=== PATIENT | female | born 1990 | race Caucasian/White ===

== ENCOUNTER 2024-09-15 09:20 | Inpatient (IN) ==
[2024-09-15 11:01] LABS: ABS Lymphocytes 1.6 10^3/uL (1.0-4.8); ABS Monocytes 0.6 10^3/uL (0.0-0.9); ABS Neutrophils 9.9 10^3/uL (1.5-7.6); Eosinophil % 0.2 %; Hematocrit 34.2 % (35-45); Hemoglobin 11.4 g/dL (11.5-14.3); Lymphocyte % 12.9 %; Mean Corpuscular Hemoglobin 27.7 pg (27-33); Mean Corpuscular Hgb Conc 33.5 g/dL (31-36); Mean Corpuscular Volume 82.6 fL (80-97); Mean Platelet Volume 8.4 fL (7.5-11.2); Platelet Count 242 10^3/uL (150-450); Red Blood Count 4.13 10^6/uL (3.63-4.92); Red Cell Distribution Width 14.2 % (12-17); White Blood Count 12.2 10^3/uL (3.8-11.8)
[2024-09-15 11:24] LABS: Albumin 3.6 g/dL (3.2-5.2); Albumin/Globulin Ratio 1.2 (1-3); Calcium 9.4 mg/dL (8.6-10.3); Creatinine, Serum 0.57 mg/dL (0.51-0.95); Globulin 2.9 g/dL (2-4); Potassium 4.1 mmol/L (3.5-5.0); Total Bilirubin 0.3 mg/dL (0.2-1.0); Total Protein 6.5 g/dL (6.4-8.9)
[2024-09-15 11:52] LABS: Urine Benzodiazepine Screen None Detected (None Detect); Urine Cannabinoids Screen None Detected (None Detect); Urine Opiates Screen None Detected (None Detect)
[2024-09-15 11:58] LABS: Urine Creatinine Concentration 19.28 mg/dL (20.00-320.00); Urine TP Concentration < 5 mg/dL; Urine TP Creat Ratio 0.25 mg/mg
[2024-09-15] MEDS: miSOPROStol 100 mcg TAB VAGINAL ONE (16:34)
[2024-09-15] MEDS ORDERED: Nalbuphine 10 MG/ML 1 ML VIAL IV PRN (18:43)
[2024-09-15] MEDS ORDERED: Calcium Carb (TUMS) 500 mg CHEW TAB PO PRN (19:30)
[2024-09-15] MEDS ORDERED: Ondansetron 4 mg VIAL 2 MG/ML 2 ml VIAL IV PRN (19:30)
[2024-09-15] MEDS: Dinoprostone 10 MG VAG.SUPP VAGINAL ONE (21:09)
[2024-09-16] MEDS: miSOPROStol 100 mcg TAB PO ONE (12:24)
[2024-09-16] MEDS: Lidocaine 2% JELLY 6 ML Topical TOPICAL ONE ×2 (16:16→21:26)
[2024-09-16] MEDS: Lactated Ringers 1000 ml BAG 1,000 ML IV SCH (16:54)
[2024-09-16] MEDS: Oxytocin in LR 20,000 MILLI.UNIT/1,000 ML BAG IV SCH (16:55)
[2024-09-16] MEDS: Lactated Ringers 1000 ml BAG 1,000 ML IV ONE (19:22)
[2024-09-16] MEDS: Buffered Lidocaine 1% SYRIN 1 ml INTRADERM ONE (19:22)
[2024-09-16] MEDS: miSOPROStol 100 mcg TAB ONE (19:30)
[2024-09-17] MEDS: Lidocaine 2% w/ EPI 1:200,000 MPF 20 ML SDV VIAL ONE ×2 (00:57→01:30)
[2024-09-17] MEDS: OBEPIDURAL (200 ML) 200 ML EPIDURAL ONE (01:12)
[2024-09-17] MEDS ORDERED: Phenylephrine 40 mcg/mL 10mL (400mcg) SYRINGE IV PUSH PRN ×2 (01:47)
[2024-09-17] MEDS ORDERED: Sodium Citrate/Citric Acid LIQ 15 ML UDC PO PRN (01:47)
[2024-09-17 02:18] LABS: Urine Appearance Extra Turbid; Urine Bilirubin Negative (Negative); Urine Blood 1+ (Negative); Urine Color Yellow; Urine Glucose Negative (Negative); Urine Ketones Negative (Negative); Urine Nitrite Negative (Negative); Urine Protein 1+ (>=30 mg/dL) (Negative); Urine Specific Gravity 1.019 (1.002-1.030); Urine Urobilinogen Negative (Negative); Urine pH 6.5 (5.0-8.0)
[2024-09-17] MEDS: Bupivacaine 0.25% SDV PF 10 ML VIAL INJ ONE (05:02)
[2024-09-17] MEDS: fentaNYL 100 mcg/2 ml 50 MCG/ML VIAL ONE (05:02)
[2024-09-17 05:48] LABS: Urine Amorphous Crystals Present /HPF (Absent); Urine Bacteria Absent /HPF (Absent); Urine Red Blood Cell 3+(>10/hpf) /HPF (0-Trace); Urine Squamous Epithelial Cell Present /HPF (Absent); Urine Transitional Epithelial Present /HPF (Absent); Urine White Blood Cell 1+(6-10/hpf) /HPF (0-Trace)
[2024-09-17] MEDS: Lactated Ringers 1000 ml BAG 1,000 ML IV ONE (05:50)
[2024-09-17] MEDS: Lactated Ringers 1000 ml BAG 1,000 ML IV SCH (05:51)
[2024-09-17] MEDS: OBEPIDURAL (200 ML) 200 ML EPIDURAL SCH (05:51)
[2024-09-17] MEDS ORDERED: Lactated Ringers 1000 ml BAG 1,000 ML IV SCH (09:00)
[2024-09-17] MEDS: Lidocaine 1% VIAL 10 MG/ML 30 ML VIAL INJ PRN (09:43)
[2024-09-17] MEDS: Witch Hazel PAD JAR TOPICAL PRN (09:43)
[2024-09-17] MEDS: Dibucaine 1% OINT 28.35 GM TUBE PR PRN (09:43)
[2024-09-17] MEDS: Phenylephrine 40 mcg/mL 10mL (400mcg) SYRINGE ONE (10:37)
[2024-09-17] MEDS: Oxytocin in LR 20,000 MILLI.UNIT/1,000 ML BAG IV SCH (15:58)
[2024-09-18 08:15] LABS: ABS Basophils 0.1 10^3/uL (0.0-0.1); ABS Eosinophils 0.1 10^3/uL (0.0-0.5); ABS Lymphocytes 2.3 10^3/uL (1.0-4.8); ABS Monocytes 1.2 10^3/uL (0.0-0.9); ABS Neutrophils 11.8 10^3/uL (1.5-7.6); ABS Nucleated RBC 0.01 10^3/ul; Eosinophil % 0.5 %; Hemoglobin 8.9 g/dL (11.5-14.3); Mean Corpuscular Hemoglobin 27.9 pg (27-33); Mean Platelet Volume 8.3 fL (7.5-11.2); Platelet Count 201 10^3/uL (150-450); Red Blood Count 3.17 10^6/uL (3.63-4.92); Red Cell Distribution Width 14.9 % (12-17); White Blood Count 15.5 10^3/uL (3.8-11.8)
[2024-09-18] MEDS: Iron Sucrose 200 MG in NS 0.9% 100 ml BAG 100 ML IVPB ONE (21:52)
[2024-09-18] MEDS: RHO D Immune Globulin (HUMAN) 300 MCG = 1,500 I.U. INJ IM PRN (22:21)
[2024-09-19 12:20] VITALS: BP 139/77
== END 2024-09-19 16:31 | disposition home or self-care (01) | DRG 807 ==
LOC: MCHOBOUT 09:20 → MCHOB 13:28
PROVIDERS: ATTEND Midwife